=== PATIENT | female | born 1980 | race Caucasian/White ===

== ENCOUNTER 2021-04-16 21:39 | Emergency (ER) | payer OTHER ==
[~2021-04-16] VITALS: Ht 175.3 cm; Wt 72.7 kg
[~2021-04-16 21:39] MED LIST: [UNRECOGNIZED DRUG - OTHER] PO
[2021-04-16 22:55] LABS: BASO # 0.02 K/mm3 (0.02-0.10); EOS # 0.01 K/mm3 (0.04-0.40); EOS % 0.2 % (1.0-5.0); HEMATOCRIT 44.9 % (37.0-47.0); LYMPH# 1.94 K/mm3 (1.50-4.00); MEAN CELL VOLUME 86 fl (78-100); MEAN CORPUSCULAR HEMOGLOBIN 29 pg (27-31); MEAN CORPUSCULAR HGB CONC 33 g/dL (33-37); MEAN PLATELET VOLUME 9.7 fl (7.4-10.4); MONO # 0.28 K/mm3 (0.20-0.80); PLATELET COUNT 234 K/mm3 (130-400); RED BLOOD COUNT 5.22 M/mm3 (4.10-5.30); RED CELL DISTRIBUTION WIDTH 12.2 % (11.5-14.5); WHITE BLOOD COUNT 5.7 K/mm3 (4.8-10.8)
[2021-04-16 23:02] LABS: ALBUMIN 4.1 g/dL (3.5-5.0); POTASSIUM 3.8 mmol/L (3.5-5.1)
[2021-04-16 23:04] LABS: CALCIUM 9.5 mg/dL (8.3-10.5)
[2021-04-16 23:05] LABS: TOTAL PROTEIN 6.9 g/dL (6.4-8.3)
[2021-04-16 23:07] LABS: TOTAL BILIRUBIN 0.5 mg/dL (0.2-1.2)
[2021-04-17] MEDS ORDERED: LEVOTHYROXIN0.075 MG PO (00:59)
[2021-04-17] MEDS ORDERED: LIOTHYRONINE SO5 MCG PO (00:59)
[2021-04-17] MEDS ORDERED: WELLBUTRIN XL300 M1 PO (00:59)
[2021-04-17] MEDS ORDERED: VITAMIN D21250 MCG PO (01:00)
[2021-04-17 01:46] LABS: URINE APPEARANCE HAZY; URINE BILIRUBIN NEGATIVE (NEGATIVE); URINE BLOOD 250 ery/uL (NEGATIVE); URINE COLOR YELLOW; URINE GLUCOSE NEGATIVE (NEGATIVE); URINE KETONE NEGATIVE (NEGATIVE); URINE LEUKOCYTE ESTERASE TRACE (NEGATIVE); URINE NITRATE NEGATIVE (NEGATIVE); URINE PROTEIN(semi-quant) TRACE (NEGATIVE); URINE UROBILINOGEN NORMAL (NORMAL)
[2021-04-17] MEDS ORDERED: ZOFRAN4 M2 PO (02:08)
[2021-04-17] MEDS ORDERED: PHENERGAN 25 TA25 MG PO (02:08)
[2021-04-17 02:19] VITALS: BP 124/80
== END 2021-04-17 02:19 | disposition home or self-care (01) ==
LOC: ED 21:39
PROVIDERS: Nurse Practitioner
DX: U07.1 COVID-19 (principal); Z87.891 Personal history of nicotine dependence
CPT/HCPCS: J2405; J2550; J7030